=== PATIENT | female | born 1950 | race Caucasian/White ===

== ENCOUNTER 2024-03-28 13:50 | Outpatient (CLI) | payer MEDICARE, OTHER, SELFPAY ==
--- OUTSIDE RECORDS SUMMARY | 2024-03-28 14:06 | XMS_ITS | Clinical Summary ---
Author Organization [facility] [employer] Address [address] [place] [address] Care Team Providers Care Fashion Patternmaker Name Role Phone Sha Watson MD Primary Care Provider Source Comments [facility],non-owned Affiliates and Associated Physician Practices is amultiple site organization consisting of ambulatory clinics and hospital sitesin [place], [place], [place] and [place]. This disclosure is being madepursuant to the Care Everywhere program and may not contain all information available regarding this patient. Last updated 17.[facility] [employer] Allergies Active Allergy Reactions Criticality Noted Date Comments Amoxicillin Rash Medium 02/14/2016 Medications * Be aware that medications may not be up to date on this document. Alwaysverify current medications with the patient. Medication Sig Dispensed Refills Start Date End Date Status alendronate (Fosamax) 70 MG tablet Take 1 (one) tablet by mouth every 7 days before meal Take in morning with full glass of water on empty stomach and remain upright for 30 min 12 tablet 12/10/2023 Active atorvastatin (Lipitor) 40 MG tablet Take 1 (one) tablet by mouth at bedtime 90 tablet 12/10/2023 Active hydroCHLOROthiazide (Hydrodiuril) 50 MG tablet Take 1 (one) tablet by mouth once daily 90 tablet 12/10/2023 Active levothyroxine (Synthroid) 50 MCG tablet Take 1 (one) tablet by mouth daily before breakfast 90 tablet 12/10/2023 Active metoprolol succinate XL 24hr (Toprol XL) 100 MG tablet Take 1 (one) tablet by mouth once daily 90 tablet 12/10/2023 Active potassium chloride ER (Micro-K8) 8 MEQ capsule Take 1 (one) capsule by mouth daily with breakfast 90 capsule 1 12/10/2023 Active pramipexole (Mirapex) 0.5 MG tablet Take 1 (one) tablet by mouth at bedtime 90 tablet 12/10/2023 Active sertraline (Zoloft) 50 MG tablet Take 1 (one) tablet by mouth once daily 90 tablet 12/10/2023 Active Active Problems Problem Noted Date Diagnosed Date Hypokalemia 07/16/2023 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 Osteoarthritis of right knee 06/02/2022 Injury, knee, right, sequela 06/02/2022 Joint injury of right knee 05/23/2022 Humerus head fracture, left, closed, initial enc ounter 04/28/2022 Closed fracture of shaft of left humerus 023 Essential hypertension, benign 12/29/2021 Hypothyroidism, adult 12/29/2021 Mixed hyperlipidemia 12/29/2021 Restless leg syndrome 12/29/2021 Encounters Date Type Department Care Team Description 03/25/2024 12:59 PM SCALE ASSEMBLY SET UP WORKER - 03/25/2024 11:59 PM [facility] [place] [address] Gelacio Payne MD Schutzenhofer, James L, MD Discharge Disposition: Home or Self Care from Last 3 Months Immunizations Name Administration Dates Next Due INFLUENZA VACCINE, QUADR. (F LUZONE; FLULAVAL; FLUARIX; AFLURIA QUADRIVALENT; 6MO+), 0.5 ML (IIV4) 12/30/2021 Family History Medical History Relation Name Comments Cancer - Breast Neg Hx Cancer - Ovarian Neg Hx Social History Tobacco Use Types Packs/Day Years Used Date Smoking Tobacco: Former Smokeless Tobacco: Never Tobacco Cessation:Counseling Given: Not Answered Alcohol Use Standard Drinks/Week Comments No 0 (1 standard drink = 0.6 oz pur e alcohol) AUDIT-C Answer Date Recorded Q1: How often do you have a drink containing alcohol? Never 04/25/2022 Q2: How many drinks containi ng alcohol do you have on a typical day when you are drinking? Patient does not drink 03/14/202 3 Q3: How often do you have si x or more drinks on one occasion? Never 04/25/2022 PHQ-2 Answer Date Recorded Patient Health Questionnaire-2 Score 0 07/16/2023 Sex and Gender Information Value Date Recorded Sex Assigned at Female 03/31/2021 8:40 PM SCALE ASSEMBLY SET UP WORKER Gender Identity Female 03/31/2021 8:40 PM SCALE ASSEMBLY SET UP WORKER Sexual Orientation Straight 03/31/2021 8: 40 PM SCALE ASSEMBLY SET UP WORKER Last Filed Vital Signs Vital Sign Reading Time Taken Comments Blood Pressure 145/75 07/16/2023 8:33 AM CDT Pulse 71 07/16/2023 8:33 AM CDT Temperature 37 C (98.6 F) 07/16/2023 8:33 AM CDT Respiratory Rate 16 04/25/2022 7:28 AM CDT Oxygen Saturation 96% 07/16/2023 8:33 AM CDT Inhaled Oxygen Concentration - - Weight 89.4 kg (197 lb) 07/16/2023 8:33 AM CDT Height 165.1 cm (5' 5 ) 07/16/2023 8:33 AM CDT Body Mass Index 32.78 07/16/2023 8:33 AM CDT Plan of Treatment Health Maintenance Due Date Last Done Comments COLOGUARD (AGES 45-75) - COLON CA SCREENING 1952 COLON MONITORING 1952 COLONOSCOPY - COLON CA SCREENING 1952 CT COLONOGRAPHY - COLON CA SCREENING 1952 FIT - COLON CA SCREENING 1952 FLEX SIG - COLON CA SCREENING 1952 DTAP/TDAP/TD VACCINES (1 - Tdap) 07/20/1971 ZOSTER VACCINE (1 of 2) 2002 MEDICARE AWV 12 MONTHS 08/02/2023 08/01/2022, 08/01/2022, 01/20/2021 COVID-19 VACCINE (3 - season) 2023 06/09/2020, 05/12/2020 INFLUENZA VACCINE (#1) 2023 12/30/2021 DEPRESSION SCREENING 02/13/2024 07/16/2023, 04/29/19 Colorectal Cancer Screening 12/22/2025 Postponed from 1952 (Patient Directed) MAMMOGRAM 03/25/2026 03/25/2024, 01/12, 12/07/2021, Additional history exists SCREENING FOR DIABETES 07/01/2026 , 01/12/2023, 07/31/2022, Additional history exists Respiratory Syncytial Virus (RSV) Vaccine Pt: or over 60 yrs (1 - 1-dose 75+ series) 07/20/2027 BONE DENSITY TESTING Completed 08/30/2022 HEPATITIS B VACCINE Aged Out No longe r eligible based on patient's age to complete this topic HEPATITIS C SCREENING Discontinued HIB VACCINE Aged Out No longer eligi ble based on patient's age to complete this topic HPV VACCINE Aged Out No longer eligi ble based on patient's age to complete this topic MENINGOCOCCAL (Group B) VACCINE Aged Out No longer eligible based on patient's age to complete this topic MENINGOCOCCAL VACCINE Aged Out No amaya lopez eligible based on patient's age to complete this topic PNEUMOCOCCAL VACCINE 50+ Discontinued Procedures Procedure Name Priority Date/Time Associated Diagnosis Comments MAMMO BILAT SCREENING W KAYE Routine 03/25/2024 1:14 PM SCALE ASSEMBLY SET UP WORKER Visit for screening mammogram COMPREHENSIVE METABOLIC PANEL Routine 07/02/2023 8:38 AM CDT Hypothyroidism, adult DEXA BONE DENSITY AXIAL SKELETON Routine 08/30/2022 2:59 PM CDT Wellness examination Hypothyroidism, adult Essential hypertension, benign Age related osteoporosis, unspecified pathological fracture presence from Last 3 Months or Most Recently Relevant to Health Maintenance Results * Mammo Bilat Screening W Kaye (03/25/2024 1:14 PM SCALE ASSEMBLY SET UP WORKER) Anatomical Region Laterality Modality Breast Bilateral Mammography 03/25/2024 2:12 PM SCALE ASSEMBLY SET UP WORKER Narrative 03/25/2024 2:14 PM SCALE ASSEMBLY SET UP WORKER FULL FIELD DIGITAL BILATERAL SCREENING MAMMOGRAMS WITH CAD AND 3-D TOMOSYNTHESIS DATE: 03/25/2024 1:15 PM PREVIOUS EXAM DATE/S (EVALUATED FOR COMPARISON): 01/25/2023 INDICATION: Screening TECHNIQUE: Bilateral craniocaudad (CC) and mediolateral oblique (MLO) views. Images were interpreted with the aid of CAD. 3-D tomosynthesis images were performed. TISSUE DENSITY: There are scattered areas of fibroglandular density FINDINGS: No discrete abnormality. No significant interval change. ASSESSMENT: BI-RADS 1 - Negative RECOMMENDATIONS: Continued annual screening mammography The above findings should be correlated with physical examination. A relatively nonspecific study should not preclude additional evaluation if suspicious findings are present clinically. > Interpreting Provider: Waldo Bolden JR, MD on 03/25/2024 2:14 PM Sha Watson MD MAMMO ORDERABLE S * (ABNORMAL) COMPREHENSIVE METABOLIC PANEL (07/02/2023 8:38 AM T) Pathologist [facility] Glucose 110 70 - 125 mg/dL 07/02/2023 11:12 AM [facility] Sodium 141 136 - 145 mmol/L 07/02/2023 11:12 AM [facility] Potassium 3.3(L) 3.4 - 5.1 mmol/L 07/02/2023 11:12 AM [facility] Chloride 106 98 - 107 mmol/L 07/02/2023 11:12 AM [facility] CO2 26 22 - 29 mmol/L 07/02/2023 11:12 AM [facility] Calcium 9.51 8.4 - 10.2 mg/dL 07/02/2023 11:12 AM [facility] Anion Gap 9 6 - 16 mmol/L 07/02/2023 11:12 AM [facility] BUN 20.5(H) 9.8 - 20.1 mg/dL 07/02/2023 11:12 AM [facility] Creatinine 0.95 0.57 - 1.11 mg/dL 07/02/2023 11:12 AM [facility] Alkaline Phosphatase 86 40 - 150 U/L 07/02/2023 11:12 AM [facility] ALT 19 <=55 U/L 07/02/2023 11:12 AM [facility] AST 25 5 - 34 U/L 07/02/2023 11:12 AM [facility] Protein Total 7.2 6.4 - 8.3 gm/dL 07/02/2023 11:12 AM [facility] Albumin 4.1 3.4 - 4.8 gm/dL 07/02/2023 11:12 AM [facility] Globulin Total 3.1 2.6 - 4.0 gm/dL 07/02/2023 11:[address] [facility] Albumin/Globulin Ratio 1.3 0.9 - 1.6 07/02/2023 11:[address] [facility] Bilirubin Total 0.6 0.2 - 1.2 mg/dL 07/02/2023 11:[address] [facility] eGFR 64(L) >90 mL/min/1.7 3m2 07/02/2023 11:[address] [facility] Comment:The GFR result was c alculated using the updated CKD-EPI Creatinine Equation (2020). Blood BLOOD SPECIMEN / Unknown Venipuncture / Unknown 07/02/2023 8:38 AM CDT 07/02/2023 8:38 AM CDT Gelacio Payne MD LAB - CHEMISTRY KALLIE PE[facility] Organization Address City/State/[facility] Co de Phone Number [facility] [address] * DEXA BONE DENSITY STUDY [id number] (08/30/2022 2:59 PM CDT) Anatomical Region Laterality Modality Digital Radiogra phy 08/30/2022 3:08 PM CDT Impressions 08/30/2022 3:25 PM CDT IMPRESSION: Osteoporosis of the right femoral neck which increases risk of fracture. Continued bone densitometry surveillance is recommended. Please see the PACS images for additional details. World Health Organization definitions of standard deviations relative to the mean T-score: Normal bone density = -1.0 and above Osteopenia = between -1.0 and -2.5 Osteoporosis = -2.5 and below Edited by Bre Tirado on 08/30/2022 3:11 PM > Interpreting Provider: Drake Brooks MD on 08/30/2022 3:25 PM Narrative 08/30/2022 3:25 PM CDT PROCEDURE: DEXA BONE DENSITY AXIAL SKELETON DATE/TIME OF EXAM: 08/30/2022 2:59 PM INDICATION: Z00.00: Encounter for general adult medical examination without abnormal findings. E03.9: Hypothyroidism, unspecified. I10: Essential (primary) hypertension. M81.0: Age-related osteoporosis without current pathological fracture. Additional History: COMPARISON: None. REPORT: Bone mineral density for the L1-4 region of the lumbar spine L1-L4, 1.21 with T-score of 0.1. Bone mineral density for the left and right femoral necks, 0.70 and 0.69 with T-scores of -2.4 and -2.5 respectively. -2.5 is borderline for mild osteoporosis. BONE DENSITY ASSESSMENT: WHO Category: Osteoporosis. Procedure Note Drake Brooks MD - 08/30/2022 PROCEDURE: DEXA BONE DENSITY AXIAL SKELETON DATE/TIME OF EXAM: 08/30/2022 2:59 PM INDICATION: Z00.00: Encounter for general adult medical examinationwithout abnormal findings. E03.9: Hypothyroidism, unspecified. I10: Essential (primary) hypertension. M81.0: Age-related osteoporosis without current pathological fracture. Additional History: COMPARISON: None. REPORT: Bone mineral density for the L1-4 region of the lumbar spine L1-L4, 1.21 with T-score of 0.1. Bone mineral density for the left and right femoral necks, 0.70 and 0.69 with T-scores of -2.4 and -2.5 respectively. -2.5 is borderline for mild osteoporosis. BONE DENSITY ASSESSMENT: WHO Category: Osteoporosis. IMPRESSION: Osteoporosis of the right femoral neck which increases risk of fracture. Continued bone densitometry surveillance is recommended. Please see the PACS images for additional details. World Health Organization definitions of standard deviations relative to the mean T-score: Normal bone density = -1.0 and above Osteopenia = between -1.0 and -2.5 Osteoporosis = -2.5 and below Edited by Bre Tirado on 08/30/2022 3:11 PM > Interpreting Provider: Drake Brooks MD on 08/30/2022 3:25 PM Gelacio Payne MD DEXA ORDERABLES from Last 3 Months or Most Recently Relevant to Health Maintenance Care Teams Fashion Patternmaker Relationship Specialty Start Date End Date Sha Watson MD [address] [address] PCP - General Internal Medicine 03/25/24
--- OUTSIDE RECORDS SUMMARY | 2024-03-28 14:06 | XMS_ITS | Referral Summary ---
Author Organization [facility] Address [address] [place] [address] Care Team Providers Care Padder Cushion Name Role Phone Sha Watson MD Primary Care Provider Source Comments [facility],non-christian hospital Affiliates and Associated Physician Practices is amultiple site organization consisting of ambulatory clinics and hospital sitesin [place], [place], [place] and [place]. This disclosure is being madepursuant to the Care Everywhere program and may not contain all information available regarding this patient. Last updated 17.[facility] Encounters Date Type Department Care Team Description 03/25/2024 12:59 PM DANCE STUDIO MANAGER - 03/25/2024 11:59 PM [facility] Hospital Encounter [facility] [address] [place] [address] Gelacio Payne MD Schutzenhofer, James L, MD Discharge Disposition: Home or Self Care from Last 3 Months Allergies Active Allergy Reactions Criticality Noted Date [...] Mixed hyperlipidemia 12/29/2021 Restless leg syndrome 12/29/2021 Immunizations Name Administration Dates Next Due INFLUENZA VACCINE, QUADR. (F LUZONE; FLULAVAL; FLUARIX; AFLURIA QUADRIVALENT; 6MO+), 0.5 ML (IIV4) 12/30/2021 Social History Tobacco Use Types Packs/Day Years [...] you are drinking? Patient does not drink Q3: How often do you have si x or more drinks on one occasion? Never 04/25/2022 PHQ-2 Answer Date Recorded Patient Health Questionnaire-2 Score 0 07/16/2023 Sex and Gender Information Value Date Recorded Sex Assigned at Female 03/31/2021 8:40 PM DANCE STUDIO MANAGER Gender Identity Female 03/31/2021 8:40 PM DANCE STUDIO MANAGER Sexual Orientation Straight 03/31/2021 8: 40 PM DANCE STUDIO MANAGER Last Filed Vital Signs Vital Sign Reading [...] 07/16/2023 8:33 AM CDT Plan of Treatment Not on file Procedures Procedure Name Priority Date/Time Associated Diagnosis Comments MAMMO BILAT SCREENING W KAYE Routine 03/25/2024 1:14 PM DANCE STUDIO MANAGER Visit for screening mammogram COMPREHENSIVE METABOLIC PANEL Routine 07/02/2023 8:38 AM CDT Hypothyroidism, adult DEXA BONE DENSITY AXIAL SKELETON Routine 08/30/2022 2:59 PM CDT Wellness examination Hypothyroidism, adult Essential hypertension, benign Age related osteoporosis, unspecified pathological fracture presence from Last 3 Months or Most Recently Relevant to Health Maintenance Results * Mammo Bilat Screening W Kaye (03/25/2024 1:14 PM DANCE STUDIO MANAGER) Anatomical Region Laterality Modality Breast Bilateral Mammography 03/25/2024 2:12 PM DANCE STUDIO MANAGER Narrative 03/25/2024 2:14 PM DANCE STUDIO MANAGER FULL FIELD DIGITAL BILATERAL SCREENING MAMMOGRAMS WITH [...] (ABNORMAL) COMPREHENSIVE METABOLIC PANEL (07/02/2023 8:38 AM [facility] Glucose 110 70 - 125 mg/dL 07/02/2023 11:[address] [facility] Sodium 141 136 - 145 mmol/L 07/02/2023 11:[address] [facility] Potassium 3.3(L) 3.4 - 5.1 mmol/L 07/02/2023 11:[address] [facility] Chloride 106 98 - 107 mmol/L 07/02/2023 11:[address] [facility] CO2 26 22 - 29 mmol/L 07/02/2023 11:[address] [facility] Calcium 9.51 8.4 - 10.2 mg/dL 07/02/2023 11:[address] [facility] Anion Gap 9 6 - 16 mmol/L 07/02/2023 11:[address] [facility] BUN 20.5(H) 9.8 - 20.1 mg/dL 07/02/2023 11:[address] [facility] Creatinine 0.95 0.57 - 1.11 mg/dL 07/02/2023 11:[address] [facility] Alkaline Phosphatase 86 40 - 150 U/L 07/02/2023 11:[address] [facility] ALT 19 <=55 U/L 07/02/2023 11:[address] [facility] AST 25 5 - 34 U/L 07/02/2023 11:[address] [facility] Protein Total 7.2 6.4 - 8.3 gm/dL 07/02/2023 11:[address] [facility] Albumin 4.1 3.4 - 4.8 gm/dL 07/02/2023 11:12 AM CDT [facility] Globulin Total 3.1 2.6 - 4.0 gm/dL 07/02/2023 11:12 AM CDT [facility] Albumin/Globulin Ratio 1.3 0.9 - 1.6 07/02/2023 11:12 AM CDT [facility] Bilirubin Total 0.6 0.2 - 1.2 mg/dL 07/02/2023 11:12 AM CDT [facility] eGFR 64(L) >90 mL/min/1.7 3m2 07/02/2023 11:12 AM CDT [facility] Comment:The GFR result was c alculated using the updated CKD-EPI Creatinine Equation (2020). Blood BLOOD SPECIMEN / Unknown Venipuncture / Unknown 07/02/2023 8:38 AM CDT 07/02/2023 8:38 AM CDT Gelacio Payne MD LAB - CHEMISTRY [facility] Organization Address City/State/[facility] Co de Phone Number [facility] [address] * DEXA BONE DENSITY STUDY [id number] (08/30/2022 2:59 PM CDT) Anatomical Region Laterality [...] Recently Relevant to Health Maintenance Care Teams Padder Cushion Relationship Specialty Start Date End Date Sha Watson MD [address] [address] PCP - General Internal Medicine 03/25/24
--- OUTSIDE RECORDS SUMMARY | 2024-03-28 14:06 | XMS_ITS | Patient Health Summary ---
Author Organization [facility] Address [address] [place] [address] Care Team Providers Care Supervisor Drying Name Role Phone Sha Watson MD Primary Care Provider Note from [facility],non-owned Affiliates and Associated Physician Practices is amultiple site organization consisting of ambulatory clinics and hospital sitesin [place], [place]. This disclosure is being madepursuant to the Care Everywhere program and may not contain all information available regarding this patient. Last updated 17.[facility] Allergies * Amoxicillin(Rash) -Medium Criticality Medications * Be aware that medications may not be up to date on this document. Alwaysverify current medications with the patient. * alendronate (Fosamax) 70 MG tablet(Started 12/10/2023) Take 1 (one) tablet by mouth every 7 days before meal Take in morning with full glass of water on empty stomach and remain upright for 30 min * atorvastatin (Lipitor) 40 MG tablet(Started 12/10/2023) Take 1 (one) tablet by mouth at bedtime * hydroCHLOROthiazide (Hydrodiuril) 50 MG tablet(Started 12/10/2023) Take 1 (one) tablet by mouth once daily * levothyroxine (Synthroid) 50 MCG tablet(Started 12/10/2023) Take 1 (one) tablet by mouth daily before breakfast * metoprolol succinate XL 24hr (Toprol XL) 100 MG tablet(Started 12/10/2023) Take 1 (one) tablet by mouth once daily * potassium chloride ER (Micro-K8) 8 MEQ capsule(Started 12/10/2023) Take 1 (one) capsule by mouth daily with breakfast 1 refill by 12/09/2024 * pramipexole (Mirapex) 0.5 MG tablet(Started 12/10/2023) Take 1 (one) tablet by mouth at bedtime * sertraline (Zoloft) 50 MG tablet(Started 12/10/2023) Take 1 (one) tablet by mouth once daily Active Problems Problem Noted Date Diagnosed Date Hypokalemia 07/16/2023 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 (FLUZONE; FLULAVAL; FLUARIX; AFLURIA QUADRIVALENT; 6MO+), 0.5 ML (IIV4)(Given 12/30/2021) Social History Tobacco Use Types Packs/Day Years [...] Sex Assigned at Female 03/31/2021 8:40 PM MD DO [facility] Gender Identity Female 03/31/2021 8:40 PM MD DO [facility] Sexual Orientation Straight 03/31/2021 8: 40 PM MD DO [facility] Last Filed Vital Signs Vital Sign Reading [...] Mass Index 32.78 07/16/2023 8:33 AM CDT Procedures * MAMMO BILAT SCREENING W PB(Performed 03/25/2024) Performed for Visit for screening mammogram * CARDIAC EKG ORDER(Performed 2023) * EKG 12-LEAD(Performed 07/17/2023) Performed for Mixed hyperlipidemia, Essential hypertension, benign * TSH(Performed 07/02/2023) Performed for Hypothyroidism, adult * LIPID PROFILE(Performed 07/02/2023) Performed for Hypothyroidism, adult * COMPREHENSIVE METABOLIC PANEL(Performed 07/02/2023) Performed for Hypothyroidism, adult * CBC W AUTO DIFFERENTIAL(Performed 07/02/2023) Performed for Hypothyroidism, adult * MAMMO BILAT SCREENING W PB(Performed 01/25/2023) Performed for Encounter for screening mammogram for malignant neoplasm of breast * TSH(Performed 01/12/2023) Performed for Hypothyroidism, adult, Essential hypertension, benign * LIPID PROFILE(Performed 01/12/2023) Performed for Hypothyroidism, adult, Essential hypertension, benign * COMPREHENSIVE METABOLIC PANEL(Performed 01/12/2023) Performed for Hypothyroidism, adult, Essential hypertension, benign * CBC W AUTO DIFFERENTIAL(Performed 01/12/2023) Performed for Hypothyroidism, adult, Essential hypertension, benign * XR HUMERUS LEFT 2VW OR MORE(Performed 10/25/2022) Performed for Closed fracture of shaft of left humerus with routine healing, unspecified fracture morphology, subsequent encounter * XR HUMERUS LEFT 2VW OR MORE(Performed 09/20/2022) Performed for Closed fracture of shaft of left humerus with routine healing, unspecified fracture morphology, subsequent encounter * DEXA BONE DENSITY AXIAL SKELETON(Performed 08/30/2022) Performed for Wellness examination, Hypothyroidism, adult, Essential hypertension, benign, Age related osteoporosis, unspecified pathological fracture presence * XR HUMERUS LEFT 2VW OR MORE(Performed 08/09/2022) Performed for Humerus head fracture, left, closed, initial encounter * TSH(Performed 07/31/2022) Performed for Hypothyroidism, adult, Mixed hyperlipidemia, Essential hypertension, benign * LIPID PROFILE(Performed 07/31/2022) Performed for Hypothyroidism, adult, Mixed hyperlipidemia, Essential hypertension, benign * COMPREHENSIVE METABOLIC PANEL(Performed 07/31/2022) Performed for Hypothyroidism, adult, Mixed hyperlipidemia, Essential hypertension, benign * CBC W AUTO DIFFERENTIAL(Performed 07/31/2022) Performed for Hypothyroidism, adult, Mixed hyperlipidemia, Essential hypertension, benign * XR HUMERUS LEFT 2VW OR MORE(Performed 07/05/2022) Performed for Closed fracture of shaft of left humerus with routine healing, unspecified fracture morphology, subsequent encounter * XR HUMERUS LEFT 2VW OR MORE(Performed 06/14/2022) Performed for Humerus head fracture, left, closed, initial encounter * MRI KNEE RIGHT WWO CONTRAST(Performed 05/31/2022) Performed for Joint injury of right knee, initial encounter * XR HUMERUS LEFT 2VW OR MORE(Performed 05/24/2022) Performed for Closed fracture of shaft of left humerus, unspecified fracture morphology, initial encounter * XR HUMERUS LEFT 2VW OR MORE(Performed 05/10/2022) Performed for Closed fracture of shaft of left humerus, unspecified fracture morphology, initial encounter * XR HUMERUS LEFT 2VW OR MORE(Performed 04/25/2022) Performed for Fall, initial encounter * TSH(Performed 01/24/2022) Performed for Mixed hyperlipidemia * LIPID PROFILE(Performed 01/24/2022) Performed for Mixed hyperlipidemia * COMPREHENSIVE METABOLIC PANEL(Performed 01/24/2022) Performed for Mixed hyperlipidemia * CBC W AUTO DIFFERENTIAL(Performed 01/24/2022) Performed for Mixed hyperlipidemia * MAMMO BILAT SCREENING(Performed 12/07/2021) Performed for Visit for screening mammogram * MAMMO BILAT SCREENING(Performed 09/29/2020) Performed for Visit for screening mammogram * SARS-COV-2 (COVID-19) IN HOUSE(Performed 10/04/2019) Performed for Exposure to SARS-associated coronavirus * MAMMO BILAT SCREENING(Performed 12/31/2018) Performed for Breast cancer screening * MAMMO BILAT SCREENING(Performed 11/20/2017) Performed for Visit for screening mammogram * MAMMO BILAT SCREENING(Performed 11/01/2016) Performed for Visit for screening mammogram * MAMMO BILAT SCREENING(Performed 08/04/2015) Performed for Visit for screening mammogram * US ABDOMEN COMPLETE(Performed 12/21/2014) Performed for Epigastric pain * MAMMO BILAT SCREENING(Performed 07/16/2014) Performed for Other screening mammogram * MAMMO BILAT SCREENING(Performed 07/04/2013) Performed for Other screening mammogram * VAS RIGHT VENOUS DUPLEX LE(Performed 11/28/2012) Performed for Pain * GROSS + MICRO EXAM(Performed 01/27/2007) Results * Mammo Bilat Screening W Pb (03/25/2024 1:14 PM MD DO [facility]) Only the most recent of2 resultswithin the time period is included. Anatomical Region Laterality Modality Breast Bilateral Mammography 03/25/2024 2:12 PM MD DO [facility] Narrative 03/25/2024 2:14 PM MD DO [facility] FULL FIELD DIGITAL BILATERAL SCREENING MAMMOGRAMS WITH [...] Sha Watson MD MAMMO ORDERABLE S * CARDIAC EKG ORDER (2023 2:54 PM CDT) Narrative 2023 2:54 PM CDT Ordered by an unspecified provider. Scanned Document CARDIAC SERVICES ORD ERABLES * EKG 12-LEAD (07/17/2023 12:42 PM CDT) [facility] Ventricular Rate 68 BPM [facility] Atrial Rate 68 BPM [facility] P-R Interval 154 ms [facility] QRS Duration ms 76 ms [facility] Q-T Interval ms 414 ms [facility] QTC Calculation (Bezet) 440 ms [facility] Calculated P Drummond 48 degrees [facility] Calculated R Drummond -9 degrees [facility] Calculated T Drummond 5 degrees [facility] Interpretation EKG NORMAL SINUS RHYTHM NORMAL ECG WHEN COMPARED WITH ECG OF 22-NOV-1999 08:55, NO SIGNIFICANT CHANGE WAS FOUND Confirmed by ROBBY MAGAÑA MD ([id number]), film and video editor MAURI PÉREZ ([id number]) on 07/18/2023 2:46:43 PM [facility] 07/17/2023 12:4 2 PM CDT 07/18/2023 2:46 PM CDT Gelacio Payne MD ECG ORDERABLES [facility] * CBC WITH DIFFERENTIAL (07/02/2023 8:38 AM CDT) Only the most recent of4 resultswithin the time period is included. Pathologist [facility] WBC 9.4 4.0 - 10.7 x10E9/L 07/02/2023 11:00 AM CDT [facility] RBC Count 4.46 3.90 - 5.20 x10E12/L 07/02/2023 11:00 AM CDT [facility] Hemoglobin 13.6 11.9 - 15.8 g/dL 07/02/2023 11:00 AM CDT [facility] Hematocrit 42.3 34.8 - 46.1 % 07/02/2023 11:00 AM CDT [facility] MCV 94.8 80.0 - 98.0 fL 07/02/2023 11:00 AM CDT [facility] MCH 30.5 26.7 - 33.6 pg 07/02/2023 11:00 AM CDT [facility] MCHC 32.2 31.7 - 36.3 g/dL 07/02/2023 11:00 AM CDT [facility] RDW-CV 13.1 11.3 - 14.8 % 07/02/2023 11:00 AM CDT [facility] Platelet Count 295 150 - 420 x10E9/L 07/02/2023 11:00 AM CDT [facility] MPV 10.9 7.8 - 11.4 fL 07/02/2023 11:00 AM CDT [facility] Neutrophil % 55.4 41.0 - 74.0 % 07/02/2023 11:00 AM CDT [facility] Lymphocyte % 34.0 17.0 - 47.0 % 07/02/2023 11:00 AM T [facility] Monocyte % 7.7 3.0 - 11.0 % 07/02/2023 11:00 AM T [facility] Eosinophil % 2.0 0.0 - 7.0 % 07/02/2023 11:00 AM T [facility] Basophil % 0.7 0.0 - 1.6 % 07/02/2023 11:00 AM T [facility] Immature Granulocytes % 0.2 0.0 - 1.0 % 07/02/2023 11:00 AM T [facility] Neutrophil Absolute 5.21 1.60 - 7.50 x10E9/L 07/02/2023 11:00 AM T [facility] Lymphocyte Absolute 3.21 1.00 - 4.40 x10E9/L 07/02/2023 11:00 AM T [facility] Monocyte Absolute 0.73 0.15 - 1.00 x10E9/L 07/02/2023 11:00 AM T [facility] Eosinophil Absolute 0.19 0.00 - 0.60 x10E9/L 07/02/2023 11:00 AM T [facility] Basophil Absolute 0.07 0.00 - 0.13 x10E9/L 07/02/2023 11:00 AM T [facility] Blood BLOOD SPECIMEN / Unknown Venipuncture / Unknown 07/02/2023 8:38 AM CDT 07/02/2023 8:38 AM CDT Gelacio Payne MD LAB - HEMATOLOGY ORD ERABLES [facility] [address] * (ABNORMAL) COMPREHENSIVE METABOLIC PANEL (07/02/2023 8:38 AM CDT) Only the most recent of4 resultswithin the time period is included. [facility] Signature Glucose 110 70 - 125 mg/dL 07/02/2023 11:12 AM [facility] Sodium 141 136 - 145 mmol/L 07/02/2023 11:12 AM [facility] Potassium 3.3(L) 3.4 - 5.1 mmol/L 07/02/2023 11:12 AM [facility] Chloride 106 98 - 107 mmol/L 07/02/2023 11:12 AM [facility] CO2 26 22 - 29 mmol/L 07/02/2023 11:12 AM [facility] Calcium 9.51 8.4 - 10.2 mg/dL 07/02/2023 11:12 AM [facility] Anion Gap 9 6 - 16 mmol/L 07/02/2023 11:12 AM [facility] BUN 20.5(H) 9.8 - 20.1 mg/dL 07/02/2023 11:12 AM [facility] Creatinine 0.95 0.57 - 1.11 mg/dL 07/02/2023 11:12 AM [facility] Alkaline Phosphatase 86 40 - 150 U/L 07/02/2023 11:12 AM [facility] ALT 19 <=55 U/L 07/02/2023 11:12 AM [facility] AST 25 5 - 34 U/L 07/02/2023 11:12 AM [facility] Protein Total 7.2 6.4 - 8.3 gm/dL 07/02/2023 11:12 AM [facility] Albumin 4.1 3.4 - 4.8 gm/dL 07/02/2023 11:12 AM [facility] Globulin Total 3.1 2.6 - 4.0 gm/dL 07/02/2023 11:12 AM [facility] Albumin/Globulin Ratio 1.3 0.9 - 1.6 07/02/2023 11:12 AM [facility] Bilirubin Total 0.6 0.2 - 1.2 mg/dL 07/02/2023 11:12 AM [facility] eGFR 64(L) >90 mL/min/1.7 3m2 07/02/2023 11:12 AM [facility] Comment:The GFR result was c alculated using the updated CKD-EPI Creatinine Equation (2020). Blood BLOOD SPECIMEN / Unknown Venipuncture / Unknown 07/02/2023 8:38 AM CDT 07/02/2023 8:38 AM CDT Gelacio Payne MD LAB - CHEMISTRY KALLIE PEÑA Performing Organization Address [facility] Co de Phone Number [facility] [address] * TSH (07/02/2023 8:38 AM CDT) Only the most recent of4 resultswithin the time period is included. TSH 2.5096 0.35 - 4.94 uIU/mL 07/02/2023 11:32 AM CDT [facility] Blood BLOOD SPECIMEN / Unknown Venipuncture / Unknown 07/02/2023 8:38 AM CDT 07/02/2023 8:38 AM CDT Gelacio Payne MD LAB - CHEMISTRY KALLIE PEÑA Performing Organization Address [facility] de Phone Number [facility] [address] [place] [address] * (ABNORMAL) LIPID PROFILE (07/02/2023 8:38 AM CDT) Only the most recent of4 resultswithin the time period is included. Cholesterol 171 <200 mg/dL 07/02/2023 11:12 AM CDT [facility] Triglycerides 248(H) <150 mg/dL 07/02/2023 11:12 AM CDT [facility] HDL Cholesterol 34(L) >40 mg/dL 11:12 AM CDT [facility] Chol HDL Ratio 5.0 1.0 - 6.0 07/02/2023 11:12 AM CDT [facility] LDL Calculated 87 65 - 130 mg/dL 07/02/2023 11:12 AM CDT [facility] VLDL Calculated 50(H) <=30 mg/dL 11:12 AM CDT [facility] Blood BLOOD SPECIMEN / Unknown Venipuncture / Unknown 07/02/2023 8:38 AM CDT 07/02/2023 8:38 AM CDT Narrative [facility] - 07/02/2023 11:12 AM CDT Lipid Profile Comment: CHOLESTEROL LEVEL..................CLINICAL INTERPRETATION LESS THAN 200 MG/DL..............................DESIRABLE 200-239 MG/DL..............................BORDERLINE HIGH GREATER THAN 240 MG/DL................................HIGH LDL-CHOLESTEROL LEVEL..............CLINICAL INTERPRETATION LESS THAN 100 MG/DL................................OPTIMAL 100-129 MG/DL.................................NEAR OPTIMAL GREATER THAN 160 MG/DL...........................HIGH RISK HDL RISK LEVEL GREATER THEN 60 MG/DL............................DECREASED 40-60 MG/DL........................................AVERAGE LESS THAN 40 MG/DL...............................INCREASED TRIGLYCERIDE LEVEL..................CLINICAL INTERPRETATION LESS THAN 150 MG/DL...............................DESIRABLE 150-199 MG/DL...............................BORDERLINE HIGH 200-499 MG/DL..........................................HIGH GREATER THAN 500..................................VERY HIGH THE NATIONAL CHOLESTEROL EDUCATION PROGRAM HAS SET THE ABOVE GUIDELINES (REFERANCE VALUES) FOR CHOLESTEROL AND HDL. RISK ASSOCIATED WITH CHOLESTEROL/HDL RATIOS RISK....................MALE RATIO.............FEMALE RATIO 1/2 AVERAGE.................<3.4.......................<3.3 LOW RISK.................... 4.0 ...................... 3.8 AVERAGE..................... 5.0 ...................... 4.5 2X AVERAGE.................. 9.5 ...................... 7.0 3X AVERAGE...................>23........................>11 Gelacio Payne MD LAB - CHEMISTRY KALLIE PEÑA [facility] Organization Address City/State/ZIP Co de Phone Number [facility] [address] [place] [address], [facility] * XR HUMERUS LEFT 2VW OR MORE (10/25/2022 10:24 AM CDT) Only the most recent of8 resultswithin the time period is included. Anatomical Region Laterality Modality Upper Extremity Radiographic Monica ging 10/25/2022 10:4 6 AM CDT Impressions 10/25/2022 10:47 AM CDT IMPRESSION: Unchanged alignment. > Interpreting Provider: Tio Lao MD on 10/25/2022 10:47 AM Narrative 10/25/2022 10:47 AM CDT PROCEDURE: XR HUMERUS LEFT 2VW OR MORE DATE/TIME OF EXAM: 10/25/2022 10:24 AM CLINICAL INFORMATION: None relevant/not provided if blank. Indication: S42.302D: Closed fracture of shaft of left humerus with routine healing, unspecified fracture morphology, subsequent encounter Additional History: COMPARISON: 09/20/2022 TECHNIQUE: FINDINGS: A brace is present. A moderately displaced and angulated fracture of the mid humeral shaft is unchanged in alignment and healing with progressive callus. Procedure Note Tio Lao MD - 10/25/2022 PROCEDURE: XR HUMERUS LEFT 2VW OR MORE DATE/TIME OF EXAM: 10/25/2022 10:24 AM CLINICAL INFORMATION: None relevant/not provided if blank. Indication: S42.302D: Closed fracture of shaft of left humerus withroutine healing, unspecified fracture morphology, subsequent encounter Additional History: COMPARISON: 09/20/2022 TECHNIQUE: FINDINGS: A brace is present. A moderately displaced and angulated fracture of the mid humeral shaft is unchanged in alignment and healing with progressive callus. IMPRESSION: Unchanged alignment. > Interpreting Provider: Tio Lao MD on 10/25/2022 10:47 AM Justyn Granados MD DIAGNOSTIC IMAGING O RDERABLES * DEXA BONE DENSITY STUDY [id number] (08/30/2022 2:59 PM CDT) Anatomical Region Laterality [...] 3:25 PM Gelacio Payne MD DEXA ORDERABLES * MRI KNEE W WO CONTRAST RIGHT [id number] (05/31/2022 3:13 PM CDT) Anatomical Region Laterality Modality Lower Extremity Magnetic Resonan ce 05/31/2022 10:4 1 PM CDT Impressions 06/01/2022 9:32 AM CDT IMPRESSION: 1.Mild to moderate tricompartmental osteoarthritic appearing degenerative changes with what appears to be simple, possibly chronic medial meniscal tear in the posterior horn. 2.Subcutaneous edematous changes in the extra-articular soft tissues possibly associated with vascular or venous congestion. Correlate clinically to exclude active infection or inflammation. 3.Small amount of fluid in the prepatellar bursa consistent with bursitis. Edited by Bre Tirado on 06/01/2022 9:18 AM > Interpreting Provider: Drake Brooks MD on 06/01/2022 9:32 AM Narrative 06/01/2022 9:32 AM CDT PROCEDURE: MRI KNEE RIGHT WWO CONTRAST, DATE/TIME OF EXAM: 05/31/2022 3:14 PM, LOCATION [facility] INDICATION: S89.91XA: Unspecified injury of right lower leg, initial encounter. COMPARISON: No comparison. CONTRAST: 6 cc Gadavist. FINDINGS: No fracture, subluxation, or dislocation. No aggressive bone lesions. Mild to moderate tricompartmental osteoarthritic appearing degenerative changes present with scattered areas of cartilaginous erosive changes, joint space narrowing, and mild spur formation. Trace effusion present. Extensive intrameniscal signal abnormality present in the posterior horn of the medial meniscus with probable chronic tear extending to the inferior surface. The anterior horn is diminutive but appears intact. The lateral meniscus, as well as both cruciate ligaments appear intact. Collateral ligaments appear intact. Quadriceps and infrapatellar tendons intact. Mild diffuse subcutaneous infiltrative changes present as well as a small amount of fluid in the prepatellar bursa. Procedure Note Drake Brooks MD - 06/01/2022 PROCEDURE: MRI KNEE RIGHT WWO CONTRAST, DATE/TIME OF EXAM: :14 PM, LOCATION [facility] INDICATION: S89.91XA: Unspecified injury of right lower leg, initial encounter. COMPARISON: No comparison. CONTRAST: 6 cc Gadavist. FINDINGS: No fracture, subluxation, or dislocation. No aggressive bone lesions. Mild to moderate tricompartmental osteoarthritic appearing degenerative changes present with scattered areas of cartilaginous erosive changes, joint space narrowing, and mild spur formation. Trace effusion present. Extensive intrameniscal signal abnormality present in the posterior hornof the medial meniscus with probable chronic tear extending to the inferior surface. The anterior horn is diminutive but appears intact. The lateral meniscus, as well as both cruciate ligaments appear intact. Collateral ligaments appear intact. Quadriceps and infrapatellar tendons intact. Mild diffuse subcutaneous infiltrative changes present as well as a small amount of fluid in the prepatellar bursa. IMPRESSION: 1.Mild to moderate tricompartmental osteoarthritic appearingdegenerative changes with what appears to be simple, possibly chronic medial meniscal tear in the posterior horn. 2.Subcutaneous edematous changes in the extra-articular soft tissues possibly associated with vascular or venous congestion. Correlate clinically to exclude active infection or inflammation. 3.Small amount of fluid in the prepatellar bursa consistent withbursitis. Edited by Bre Tirado on 06/01/2022 9:18 AM > Interpreting Provider: Drake Brooks MD on 06/01/2022 9:32 AM Gelacio Payne MD MR ORDERABLES * MAMMO BILAT SCREENING (12/07/2021 3:46 PM CDT) Only the most recent of8 resultswithin the time period is included. Anatomical Region Laterality Modality Breast Bilateral Mammography 12/07/2021 4:33 PM CDT Impressions 12/07/2021 4:34 PM CDT : Benign mammogram, without evidence of malignancy. RECOMMENDATION: Annual screening mammography. OVERALL ASSESSMENT: BI-RADS CATEGORY 2: BENIGN. Annual screening mammography. A). A negative report should not delay a biopsy if a dominant or clinically suspicious mass is present. B). Adenosis and dense breasts may obscure an underlying neoplasm. C). Study interpreted with computer-aided detection. MQSA BI-RADS Categories: Category 0 - needs additional imaging evaluation. Category 1 - negative. Category 2 - benign. Category 3 - probably benign. Category 4 - suspicious. 4A- low suspicion for malignancy. 4B- moderate suspicion for malignancy. 4C- high suspicion for malignancy. Category 5 - highly suggestive of malignancy. > Interpreting Provider: Damaso Sadelr MD on 12/07/2021 4:34 PM Narrative 12/07/2021 4:34 PM CDT EXAMINATION: DIGITAL MAMMO BILAT SCREENING WITH BILATERAL TOMOSYNTHESIS DATE: 12/07/2021 HISTORY: Screening. COMPARISON: Prior breast imaging dating back to 2011 TECHNIQUE: Bilateral synthetic 2-D (C-view) digital mammogram images and bilateral digital breast tomosynthesis were obtained in the craniocaudal and mediolateral oblique projections. Computer-aided detection (CAD) was utilized. BREAST PARENCHYMAL COMPOSITION: Category B: There are scattered areas of fibroglandular density. FINDINGS: There are no suspicious findings or evidence of malignancy on mammography. There are benign findings noted. There is no significant change from the prior. Gelacio Payne MD MAMMO ORDERABLES * (ABNORMAL) SARS-COV-2 (COVID-19) IN HOUSE (10/04/2019 10:26 AM CDT) COVID-19 PCR Detected( AA) Not detected, Invalid 10/06/2019 1:17 AM CDT [facility] Microbiology SPECIMEN FROM NASOPHARYNGEAL STRUCTURE / Unknown Collection / Unknown 10/04/2019 10:26 AM CDT 10/04/2019 10:[address] [facility] - 10/06/2019 1:17 AM CDT This Real Time RT-PCR assay was developed and its performance characteristics determined by [facility]. This test has been authorized by the Food and Drug administration (FDA)under an Emergency Use Authorization (EUA). This test has been validated in accordance with the FDA's guidance document Policy for Diagnostic Testing in Laboratories Certified to perform High Complexity Testing under CLIA prior to Emergency Use Authorization for Coronavirus Disease-2019 during the Public Health Emergency issued on April 12, 2019. FDA independent review of this validation is pending. This test is only authorized for the duration of time the declaration that circumstances exist justifying the authorization of emergency use of in vitro diagnostic tests for detection of SARS-CoV-2 virus and/or diagnosis of COVID-19 infection under section 564(b)(1) of the Act, 21 U.S.C 360bbb-3 (b)(1), unless the authorization is terminated or revoked sooner. Nkechi Luke BOILER MAKER-CYBER SECURITY ARCHITECT LAB - MICR OBIOLOGY ORDERABLES [facility] [address] [place] [address], [facility] [phone] * US ABDOMEN COMPLETE [id number] (12/21/2014 8:40 AM MD DO [facility]) Anatomical Region Laterality Modality Abdomen Ultrasound 12/21/2014 8:45 AM MD DO [facility] Impressions 12/21/2014 8:53 AM MD DO [facility] Negative complete abdominal sonogram. Narrative 12/21/2014 8:53 AM MD DO [facility] COMPLETE ABDOMINAL SONOGRAM (12/21/2014) CLINICAL HISTORY: Epigastric pain. FINDINGS: Normal appearing liver. No gallstones. Pancreas, spleen, abdominal aorta, IVC and both kidneys are normal. Right kidney measures 11 x 4 x 5 cm. Left kidney measures 10 x 4 x 4 cm. Common duct measures 8 mm. Gallbladder wall thickness is 1.7 mm. Procedure Note Abimael Nazario MD - 12/21/2014 COMPLETE ABDOMINAL SONOGRAM (12/21/2014) CLINICAL HISTORY: Epigastric pain. FINDINGS: Normal appearing liver. No gallstones. Pancreas, spleen, abdominal aorta, IVC and both kidneys are normal. Right kidney measures 11 x 4 x 5 cm. Left kidney measures 10 x 4 x 4 cm. Common duct measures 8 mm. Gallbladder wall thickness is 1.7 mm. IMPRESSION Negative complete abdominal sonogram. Gelacio Payne MD US ORDERABLES * VAS VENOUS DUPLEX LOWER EXT RIGHT (11/28/2012 10:45 AM CDT) Anatomical Region Laterality Modality Intravascular Ul trasound Narrative 12/05/2012 6:16 PM CDT DATE: 11/28/12 INDICATION: PAIN IN THE RIGHT THIGH WITH POSSIBLE DVT PROCEDURE: Venous Duplex study was performed on the right common femoral, superficial femoral, popliteal, peroneal, posterior tibial and greater saphenous veins. The left common femoral vein was imaged for comparison. The flow was spontaneous and phasic. Augmentation test was negative for obstruction. There was no retrograde flow noted and the flow was non-pulsatile. There were no thrombi seen on B-scan images. CONCLUSION: VENOUS DUPLEX STUDY WAS PERFORMED ON THE RIGHT LOWER EXTREMITY AND THE FINDINGS WERE NEGATIVE FOR DEEP VEIN THROMBOSIS. Procedure Note Kathy Payne MD - 12/05/2012 DATE: 11/28/12 INDICATION: PAIN IN THE RIGHT THIGH WITH POSSIBLE DVT PROCEDURE: Venous Duplex study was performed on the right common femoral,superficial femoral, popliteal, peroneal, posterior tibial and greatersaphenous veins. The left common femoral vein was imaged for comparison.The flow was spontaneous and phasic. Augmentation test was negative forobstruction. There was no retrograde flow noted and the flow wasnon-pulsatile. There were no thrombi seen on B-scan images. CONCLUSION: VENOUS DUPLEX STUDY WAS PERFORMED ON THE RIGHT LOWEREXTREMITY AND THE FINDINGS WERE NEGATIVE FOR DEEP VEIN THROMBOSIS. Gelacio Payne MD VASCULAR LAB ORDERAB LES * GROSS + MICRO EXAM (01/27/2007 5:20 PM MD DO [facility]) Result CASE NUMBER [id number] Comment: ORDERING PHYSICIAN Kathy PAYNE SPECIMEN TYPE Stone For Analysis-kidney *CLINICAL HISTORY A 56 year old female presented with a calculus of kidney. SPECIMEN SOURCE Stone for analysis, kidney. GROSS DESCRIPTION The specimen is received in one part. Received fresh, labeled with the patient's identification, and designated stone for analysis, kidney is an irregular piece of brown, firm calculus measuring 0.2 x 0.1 x 0.1 cm. Gross only. Submitted entirely to a reference laboratory for chemical analysis. HC/lw GROSSED BY PRERNA HOLDER M.D. READ BY PRERNA HOLDER M.D. DIAGNOSIS ONE CALCULUS OF KIDNEY RECEIVED, GROSS ONLY. *COMMENT Refer to outside report for chemical analysis. RELEASED BY PRERNA HOLDER MISCELLANEOUS SAMPLES / Unknown 01/27/2007 5:20 PM MD DO [facility] 01/28/2007 8:21 AM MD DO [facility] Historical Provider LAB - PATHOLOGY/C YTOLOGY ORDERABLES Care Teams Supervisor Drying Relationship Specialty [place] [address] [place] [id number] PCP - General Internal Medicine 03/25/24
--- NOTE | 2024-03-28 15:06 | ECG_ITS ---
Test Date: 2024-03-28 15:31:21 Measurements Intervals [place] Rate: 68 P: 48 VA: 136 QRS: -31 QRSD: 94 T: -6 QT: 413 QTc: 440 Interpretive Statements SINUS RHYTHM LEFT AXIS DEVIATION LOW QRS VOLTAGE IN PRECORDIAL LEADS PATTERN CONSISTENT WITH PULMONARY DISEASE VOLTAGE CRITERIA FOR LVH BORDERLINE ST-T WAVE ABNORMALITY- ANT/INF LEADS BASELINE ARTIFACT- I, II, III, AVR, AVL, AVF, V1-V6 BORDERLINE ECG No previous ECG available for comparison Electronically Signed On 03-28-2024 15:33:01 MISSILE CONTROL PILOT by Enrrique Vasques D.O.
[2024-03-28 16:07] LABS: Basophils Percent Auto 0.3 % (0.2-1.2); Eosinophils Absolute Auto 0.2 K/mm3 (0-0.3); Eosinophils Percent Auto 1.9 % (0-4.4); Hematocrit 41.3 % (37.0-47.0); Hemoglobin 13.3 g/dL (12.0-15.0); Lymphocytes Absolute Auto 2.42 K/mm3 (0.9-3.2); Lymphocytes Percent Auto 28.2 % (18.3-44.2); Mean Corpuscular HGB Conc 32.2 g/dl (32-36); Mean Corpuscular Hemoglobin 30.6 pg (26-34); Mean Corpuscular Volume 94.9 fl (80-100); Mean Platelet Volume 10.6 fl (7.4-10.4); Monocytes Absolute Auto 0.6 K/mm3 (0.1-0.6); Monocytes Percent Auto 6.4 % (2.6-8.5); Neutrophils Absolute Auto 5.4 K/mm3 (1.3-6.7); Neutrophils Percent Auto 63.2 % (45.5-73.1); Platelet Count Result 300 k/mm3 (150-375); Red Blood Count 4.35 M/mm3 (4.2-5.4); Red Cell Distribution Width 13.1 % (11.5-14.5); White Blood Count 8.6 K/mm3 (4.5-10.0)
[2024-03-28 16:19] LABS: INR 0.9; Prothrombin Time 12.8 Seconds (11.1-14.7)
[2024-03-28 16:20] LABS: Partial Thromboplastin Time 31.8 Seconds (22.3-36.8)
[2024-03-28 16:26] LABS: Alanine Aminotransferase 25 U/L (6-35); Albumin Level 4.6 g/dL (3.5-5.1); Alkaline Phosphatase 109 U/L (38-126); Anion Gap 11 mmol/L (4-12); Aspartate Amino Transferase 34 U/L (14-36); Bilirubin,Total 0.6 mg/dL (0.2-1.3); Blood Urea Nitrogen 18 mg/dL (7-17); Calcium 9.6 mg/dL (8.4-10.2); Carbon Dioxide 29 mmol/L (22-30); Chloride 101 mmol/L (98-107); Estimated Glomerular Filt Rate > 60; Glucose 101 mg/dL (65-110); Potassium 3.6 mmol/L (3.4-5.0); Sodium 141 mmol/L (137-145)
== END 2024-03-28 13:51 | disposition home or self-care (01) ==
LOC: ANHSURGERY 14:01
PROVIDERS: Visit Provider Urology
DX: N81.11 Cystocele, midline (principal); I10 Essential (primary) hypertension; Z01.818 Encounter for other preprocedural examination
CPT/HCPCS: 36415; 80053; 85025; 85610; 85730; 86850; 86900; 86901; 93005

== ENCOUNTER 2024-04-07 03:23 | Day surgery (SDC) | payer MEDICARE, OTHER, SELFPAY ==
[2024-03-28 14:26] VITALS: BP 161/82; PULSE 68; RESP 16; TEMP 37.3; O2SAT 99; BMI 35.0
--- NOTE | 2024-03-28 14:44 | PC.NURSE ---
Report to the Outpatient Waiting Room, entrance under the green pavilion located off [facility], at time __6:00AM on date ___04/07/24____. Planned Procedure Time: ___7:30AM .? Time changes happen often and if your time is changed the preop area will call you the afternoon before. - You and your visitor will be asked to self-screen and do not enter if you have any COVID symptoms. Please call surgeon if you need to reschedule. - A mask is optional within the hospital at this time. Patients may have clear liquids (water, carbonated beverages, clear teas, apple juice) until 3 hours prior to surgery (4:30AM) with a maximum of 20 ounces. - No food from midnight until time of surgery and no smoking, or chewing tobacco (or any form of nicotine). No chewing gum, candy or mints. Take only the following medications with a SIP of water on the morning of surgery: ___LEVOTHYROXINE, METOPROLOL, SERTRALINE, PRAMIPEXOLE DO NOT STOP ANY OF YOUR OTHER PRESCRIPTION MEDICATIONS PRIOR TO SURGERY EXCEPT THE FOLLOWING Hold all vitamins and supplements for 3 days per anesthesiologist.-LAST DOSE 04/03/24 Medications to discontinue per physician NONE Date to take last dose Please no make-up, nail telugu, hairspray, perfume, deodorant, or body powder the day of surgery.? No jewelry (including any body piercings) or valuables the day of surgery, leave them at home.? Please take a shower or bath the night before, or the morning of, surgery with an antibacterial soap.? Wear comfortable, loose fitting clothing.? - Jewelry must be removed prior to entering the operating room.? Rings and piercings that are not removed may be cut off. - The hospital will not accept responsibility for valuables.? - Please leave all valuables, including medications, at home the day of surgery. If you are going home after surgery, a licensed after school driver must drive you home.? - NO public transportation without another adult if you receive anesthesia. - We recommend that an adult stay with you for 24 hours following discharge. - We also recommend that you do not drive, make important decision, drink alcoholic beverages, or take any drugs that were not prescribed by your health care provider for at least 24 hours after your discharge time. Follow any additional instructions given to you from your surgeon. Telephone instructions given to PATIENT and asked if any additional questions and then verbalized understanding. Patient advised to call surgeon office or pre surgery nurse liaison [phone] if any additional questions.
--- NOTE | 2024-04-04 10:04 | PM.IMHP ---
H&P: HPI History of Present Illness Date/Time: 04/04/24 10:04 Chief Complaint: Prolapse Incontinence Narrative: Vaginal wall prolapse as well as stress incontinence noted on urodynamics Previous instructed Review of Systems Review of Systems: All systems reviewed & are unremarkable except as noted in HPI and below PMFSH Social History Social History Smoking status: Never smoker Living arrangements: with family Additional living arrangements comments: HUSB Spiritual care concerns: No Meds Home Medications and Allergies Home Medications ?Medication ?Instructions ?Recorded ?Confirmed ?Type alendronate 70 mg tablet 70 mg PO WEEKLY 03/28/24 03/28/24 History atorvastatin 40 mg tablet 40 mg PO QPM 03/28/24 03/28/24 History calcium carb-ergocalciferol (vit 2 tablet PO DAILY 03/28/24 03/28/24 History D2) 600 mg calcium-200 unit tablet hydrochlorothiazide 50 mg tablet 50 mg PO QAM 03/28/24 03/28/24 History ipratropium bromide 21 mcg (0.03 2 spray intranasal BID PRN allergy 03/28/24 03/28/24 History %) nasal spray symptoms levothyroxine 50 mcg tablet 50 mcg PO QAM 03/28/24 03/28/24 History metoprolol succinate 100 mg 100 mg PO QAM 03/28/24 03/28/24 History tablet,extended release 24 hr multivitamin (Daily Multi-Vitamin 1 tablet PO DAILY 03/28/24 03/28/24 History tablet) potassium chloride 8 mEq 8 meq PO QAM 03/28/24 03/28/24 History capsule,extended release pramipexole 0.5 mg tablet 0.25 mg PO BID 03/28/24 03/28/24 History sertraline 50 mg tablet 50 mg PO QAM 03/28/24 03/28/24 History Allergies Allergy/AdvReac Type Severity Reaction Status Date / Time amoxicillin Allergy Intermediate RASH Verified 03/28/24 14:16 SURGICAL TAPE AdvReac BLISTERS Uncoded 03/28/24 14:50 Exam Narrative: [place] at +4 Urethral mobility Assessment and Plan Assessment and plan (1) Prolapse of vaginal vault after hysterectomy: Code(s): N99.3 - Prolapse of vaginal vault after hysterectomy Status: Acute (2) CHASTITY (stress urinary incontinence, female): Code(s): N39.3 - Stress incontinence (female) (male) Status: Acute Plan Plan for robotic sacral colpopexy and urethral sling. Risks, benefits, alternatives all discussed. They are documented in my office chart
[2024-04-07] VITALS (10 sets, daily range): BP systolic 110–149; BP diastolic 50–72; PULSE 63–82; RESP 10–18; TEMP 36.8–36.9; O2SAT 92–99
--- OUTSIDE RECORDS SUMMARY | 2024-04-07 03:28 | XMS_ITS | Patient Health Summary ---
Author Organization [facility] Address [address] [place] [address] Care Team Providers Care Commercial Teller Name Role Phone Sha Watson MD Primary Care Provider Note from [facility],non-owned Affiliates and Associated Physician Practices is amultiple site organization consisting of ambulatory clinics and hospital sitesin [place], [place], [place] and [place]. This disclosure is being madepursuant to the Care Everywhere program and may not contain all information available regarding this patient. Last updated 17.[facility] Allergies * Amoxicillin(Rash) -Medium Criticality Medications * [...] Sex Assigned at Female 03/31/2021 8:40 PM RESEARCH QUALITY ASSURANCE ANALYST Gender Identity Female 03/31/2021 8:40 PM RESEARCH QUALITY ASSURANCE ANALYST Sexual Orientation Straight 03/31/2021 8: 40 PM RESEARCH QUALITY ASSURANCE ANALYST Last Filed Vital Signs Vital Sign Reading [...] Bilat Screening W Pb (03/25/2024 1:14 PM RESEARCH QUALITY ASSURANCE ANALYST) Only the most recent of2 resultswithin the time period is included. Anatomical Region Laterality Modality Breast Bilateral Mammography 03/25/2024 2:1 2 PM RESEARCH QUALITY ASSURANCE ANALYST Narrative 03/25/2024 2:14 PM RESEARCH QUALITY ASSURANCE ANALYST FULL FIELD DIGITAL BILATERAL SCREENING MAMMOGRAMS WITH [...] * EKG 12-LEAD (07/17/2023 12:42 PM CDT) [facility] Signature Ventricular Rate 68 BPM [facility] MUSE Atrial Rate 68 BPM [facility] MUSE P-R Interval 154 ms [facility] QRS Duration ms 76 ms [facility] Q-T Interval ms 414 ms [facility] MUSE QTC Calculation (Bezet) 440 ms [facility] MUSE Calculated P [place] 48 degrees [facility] MUSE Calculated R [place] -9 degrees [facility] MUSE Calculated T [place] 5 degrees [facility] MUSE Interpretation EKG NORMAL SINUS RHYTHM NORMAL ECG WHEN COMPARED WITH ECG OF 22-NOV-1999 08:55, NO SIGNIFICANT CHANGE WAS FOUND Confirmed by ROBBY MAGAÑA MD ([id number]), news video editor MAURI PÉREZ ([id number]) on 07/18/2023 2:46:43 PM [facility] MUSE 07/17/2023 12:4 2 PM CDT 07/18/2023 2:46 PM CDT Gelacio Payne MD ECG ORDERABLES [facility] MUSE * CBC WITH DIFFERENTIAL (07/02/2023 8:38 AM CDT) Only the most recent of4 resultswithin the time period is included. Pathologist [facility] WBC 9.4 4.0 - 10.7 x10E9/L 07/02/2023 11:00 AM CDT [facility] RBC Count 4.46 3.90 - 5.20 x10E12/L 07/02/2023 11:00 AM CDT [facility] Hemoglobin 13.6 11.9 - 15.8 g/dL 07/02/2023 11:00 AM CDT [facility] Hematocrit 42.3 34.8 - 46.1 % 07/02/2023 11:00 AM CDT [facility] MCV 94.8 80.0 - 98.0 fL 07/02/2023 11:00 AM CDT [facility] MCH 30.5 26.7 - 33.6 pg 07/02/2023 11:00 AM CDT [facility] MCHC 32.2 31.7 - 36.3 g/dL 07/02/2023 11:00 AM CDT [facility] RDW-CV 13.1 11.3 - 14.8 % 07/02/2023 11:00 AM CDT [facility] Platelet Count 295 150 - 420 x10E9/L 07/02/2023 11:00 AM CDT [facility] MPV 10.9 7.8 - 11.4 fL 07/02/2023 11:00 AM CDT [facility] Neutrophil % 55.4 41.0 - 74.0 % 07/02/2023 11:00 AM CDT [facility] Lymphocyte % 34.0 17.0 - 47.0 % 07/02/2023 11:00 AM CDT [facility] Monocyte % 7.7 3.0 - 11.0 % 07/02/2023 11:00 AM CDT [facility] Eosinophil % 2.0 0.0 - 7.0 % 07/02/2023 11:00 AM T [facility] Basophil % 0.7 0.0 - 1.6 % 07/02/2023 11:00 AM CDT [facility] Immature Granulocytes % 0.2 0.0 - 1.0 % 07/02/2023 11:00 AM CDT [facility] Neutrophil Absolute 5.21 1.60 - 7.50 x10E9/L 07/02/2023 11:00 AM CDT [facility] Lymphocyte Absolute 3.21 1.00 - 4.40 x10E9/L 07/02/2023 11:00 AM CDT [facility] Monocyte Absolute 0.73 0.15 - 1.00 x10E9/L 07/02/2023 11:00 AM CDT [facility] Eosinophil Absolute 0.19 0.00 - 0.60 x10E9/L 07/02/2023 11:00 AM T [facility] Basophil Absolute 0.07 0.00 - 0.13 x10E9/L 07/02/2023 11:00 AM T [facility] Blood BLOOD SPECIMEN / Unknown Venipuncture / Unknown 07/02/2023 8:38 AM CDT 07/02/2023 8:38 AM CDT Gelacio Payne MD LAB - HEMATOLOGY ORD ERABLES [facility] [address] * (ABNORMAL) COMPREHENSIVE METABOLIC PANEL (07/02/2023 8:38 AM CDT) Only the most recent of4 resultswithin the time period is included. [facility] Signature Glucose 110 70 - 125 mg/dL 07/02/2023 11:12 AM [facility] Sodium 141 136 - 145 mmol/L 07/02/2023 11:12 AM [facility] Potassium 3.3(L) 3.4 - 5.1 mmol/L 07/02/2023 11:12 AM [facility] Chloride 106 98 - 107 mmol/L 07/02/2023 11:12 AM [facility] CO2 26 22 - 29 mmol/L 07/02/2023 11:12 AM [facility] Calcium 9.51 8.4 - 10.2 mg/dL 07/02/2023 11:12 AM [facility] Anion Gap 9 6 - 16 mmol/L 07/02/2023 11:12 AM [facility] BUN 20.5(H) 9.8 - 20.1 mg/dL 07/02/2023 11:12 AM [facility] Creatinine 0.95 0.57 - 1.11 mg/dL 07/02/2023 11:12 AM [facility] Alkaline Phosphatase 86 40 - 150 U/L 07/02/2023 11:12 AM [facility] ALT 19 <=55 U/L 07/02/2023 11:12 AM [facility] AST 25 5 - 34 U/L 07/02/2023 11:12 AM [facility] Protein Total 7.2 6.4 - 8.3 gm/dL 07/02/2023 11:12 AM [facility] Albumin 4.1 3.4 - 4.8 gm/dL 07/02/2023 11:12 AM [facility] Globulin Total 3.1 2.6 - 4.0 gm/dL 07/02/2023 11:12 AM [facility] Albumin/Globulin Ratio 1.3 0.9 - 1.6 07/02/2023 11:12 AM [facility] Bilirubin Total 0.6 0.2 - 1.2 mg/dL 07/02/2023 11:12 AM [facility] eGFR 64(L) >90 mL/min/1.7 3m2 07/02/2023 11:12 AM [facility] Comment:The GFR result was c alculated using the updated CKD-EPI Creatinine Equation (2020). Blood BLOOD SPECIMEN / Unknown Venipuncture / Unknown 07/02/2023 8:38 AM CDT 07/02/2023 8:38 AM CDT Gelacio Payne MD LAB - CHEMISTRY KALLIE PEÑA Performing Organization Address [facility] Co de Phone Number [facility] [address] * TSH (07/02/2023 8:38 AM CDT) Only the most recent of4 resultswithin the time period is included. TSH 2.5096 0.35 - 4.94 uIU/mL 07/02/2023 11:32 AM CDT [facility] Blood BLOOD SPECIMEN / Unknown Venipuncture / Unknown 07/02/2023 8:38 AM CDT 07/02/2023 8:38 AM CDT Gelacio Payne MD LAB - CHEMISTRY KALLIE PEÑA Performing Organization Address [facility] de Phone Number [facility] [address] [place] [address] * (ABNORMAL) LIPID PROFILE (07/02/2023 8:38 AM CDT) Only the most recent of4 resultswithin the time period is included. Cholesterol 171 <200 mg/dL 07/02/2023 11:12 AM CDT [facility] Triglycerides 248(H) <150 mg/dL 07/02/2023 11:12 AM CDT [facility] HDL Cholesterol 34(L) >40 mg/dL 11:12 AM CDT [facility] Chol HDL Ratio 5.0 1.0 - 6.0 07/02/2023 11:12 AM CDT [facility] LDL Calculated 87 65 - 130 mg/dL 07/02/2023 11:12 AM CDT [facility] VLDL Calculated 50(H) <=30 mg/dL 11:12 AM CDT [facility] Blood BLOOD SPECIMEN / Unknown Venipuncture / Unknown 07/02/2023 8:38 AM CDT 07/02/2023 8:38 AM CDT [facility] - 07/02/2023 11:12 AM CDT Lipid [...] Payne MD LAB - CHEMISTRY KALLIE PEÑA [facility] Organization Address City/State/ZIP Co de Phone Number [facility] [address] [place] [address], [facility] * XR HUMERUS LEFT 2VW OR MORE [...] O RDERABLES * DEXA BONE DENSITY STUDY [id number] (08/30/2022 2:59 PM CDT) Anatomical Region Laterality [...] * MRI KNEE W WO CONTRAST RIGHT [id number] (05/31/2022 3:13 PM CDT) Anatomical Region Laterality [...] DATE/TIME OF EXAM: 05/31/2022 3:14 PM, LOCATION [facility] INDICATION: S89.91XA: Unspecified injury of right lower [...] CONTRAST, DATE/TIME OF EXAM: :14 PM, LOCATION [facility] INDICATION: S89.91XA: Unspecified injury of right lower [...] suggestive of malignancy. > Interpreting Provider: Damaso Sadler MD on 12/07/2021 4:34 PM Narrative 12/07/2021 [...] Not detected, Invalid 10/06/2019 1:17 AM CDT [facility] Microbiology SPECIMEN FROM NASOPHARYNGEAL STRUCTURE / Unknown Collection / Unknown 10/04/2019 10:26 AM CDT 10/04/2019 10:26 AM CDT Narrative [facility] - 10/06/2019 1:17 AM CDT This Real Time RT-PCR assay was developed and its performance characteristics determined by [facility]. This test has been authorized [...] is terminated or revoked sooner. Nkechi Luke MEDICAL AFFAIRS DIRECTOR-MOTTLER MACHINE FEEDER LAB - MICR OBIOLOGY ORDERABLES [facility] [address] [place] [address], [facility] [phone] * US ABDOMEN COMPLETE [id number] (12/21/2014 8:40 AM RESEARCH QUALITY ASSURANCE ANALYST) Anatomical Region Laterality Modality Abdomen Ultrasound 12/21/2014 8:45 AM RESEARCH QUALITY ASSURANCE ANALYST Impressions 12/21/2014 8:53 AM RESEARCH QUALITY ASSURANCE ANALYST Negative complete abdominal sonogram. Narrative 12/21/2014 8:53 AM RESEARCH QUALITY ASSURANCE ANALYST COMPLETE ABDOMINAL SONOGRAM (12/21/2014) CLINICAL HISTORY: Epigastric [...] GROSS + MICRO EXAM (01/27/2007 5:20 PM RESEARCH QUALITY ASSURANCE ANALYST) Result CASE NUMBER [id number] Comment: ORDERING [...] MISCELLANEOUS SAMPLES / Unknown 01/27/2007 5:20 PM RESEARCH QUALITY ASSURANCE ANALYST 01/28/2007 8:21 AM RESEARCH QUALITY ASSURANCE ANALYST Historical Provider LAB - PATHOLOGY/C YTOLOGY ORDERABLES Care Teams Commercial Teller Relationship Specialty Start Date End Date Sha Watson MD [address] [address] PCP - General Internal Medicine 03/25/24
--- OUTSIDE RECORDS SUMMARY | 2024-04-07 03:28 | XMS_ITS | Referral Summary ---
Author Organization [facility] Address [address] [place] [address] Care Team Providers Care Education General Manager Name Role Phone Sha Watson MD Primary Care Provider Source Comments [facility],non-[facility] Affiliates and Associated Physician Practices is amultiple site organization consisting of ambulatory clinics and hospital sitesin [place], [place], [place] and [place]. This disclosure is being madepursuant to the Care Everywhere program and may not contain all information available regarding this patient. Last updated 17.[facility] Encounters Date Type Department Care Team Description 03/25/2024 12:59 PM CULTURAL ANTHROPOLOGY PROFESSOR - 03/25/2024 11:59 PM [facility] Hospital Encounter [facility] [address] [place] [address] Gelacio Payne MD Schutzenhofer, James L, MD [...] Sex Assigned at Female 03/31/2021 8:40 PM CULTURAL ANTHROPOLOGY PROFESSOR Gender Identity Female 03/31/2021 8:40 PM CULTURAL ANTHROPOLOGY PROFESSOR Sexual Orientation Straight 03/31/2021 8: 40 PM CULTURAL ANTHROPOLOGY PROFESSOR Last Filed Vital Signs Vital Sign Reading [...] SCREENING W KAYE Routine 03/25/2024 1:14 PM CULTURAL ANTHROPOLOGY PROFESSOR Visit for screening mammogram COMPREHENSIVE METABOLIC PANEL Routine 07/02/2023 8:38 AM CDT Hypothyroidism, adult DEXA BONE DENSITY AXIAL SKELETON Routine 08/30/2022 2:59 PM CDT Wellness examination Hypothyroidism, adult Essential hypertension, benign Age related osteoporosis, unspecified pathological fracture presence from Last 3 Months or Most Recently Relevant to Health Maintenance Results * Mammo Bilat Screening W Kaye (03/25/2024 1:14 PM CULTURAL ANTHROPOLOGY PROFESSOR) Anatomical Region Laterality Modality Breast Bilateral Mammography 03/25/2024 2:12 PM CULTURAL ANTHROPOLOGY PROFESSOR Narrative 03/25/2024 2:14 PM CULTURAL ANTHROPOLOGY PROFESSOR FULL FIELD DIGITAL BILATERAL SCREENING MAMMOGRAMS WITH [...] (ABNORMAL) COMPREHENSIVE METABOLIC PANEL (07/02/2023 8:38 AM [facility]) Glucose 110 70 - 125 mg/dL 07/02/2023 11:12 AM [facility] Sodium 141 136 - 145 mmol/L 07/02/2023 11:12 AM [facility] Potassium 3.3(L) 3.4 - 5.1 mmol/L 07/02/2023 11:12 AM [facility] Chloride 106 98 - 107 mmol/L 07/02/2023 11:12 AM [facility] CO2 26 22 - 29 mmol/L 07/02/2023 11:12 AM [facility] Calcium 9.51 8.4 - 10.2 mg/dL 07/02/2023 11:12 AM [facility] Anion Gap 9 6 - 16 mmol/L 07/02/2023 11:12 AM [facility] BUN 20.5(H) 9.8 - 20.1 mg/dL 07/02/2023 11:12 AM [facility] Creatinine 0.95 0.57 - 1.11 mg/dL 07/02/2023 11:12 AM [facility] Alkaline Phosphatase 86 40 - 150 U/L 07/02/2023 11:12 AM [facility] ALT 19 <=55 U/L 07/02/2023 11:12 AM [facility] AST 25 5 - 34 U/L 07/02/2023 11:12 AM [facility] Protein Total 7.2 6.4 - 8.3 gm/dL 07/02/2023 11:12 AM [facility] Albumin 4.1 3.4 - 4.8 gm/dL 07/02/2023 11:12 AM CDT [facility] Globulin Total 3.1 2.6 - 4.0 gm/dL 07/02/2023 11:12 AM CDT [facility] Albumin/Globulin Ratio 1.3 0.9 - 1.6 07/02/2023 11:12 AM CDT [facility] Bilirubin Total 0.6 0.2 - 1.2 mg/dL 07/02/2023 11:12 AM CDT [facility] eGFR 64(L) >90 mL/min/1.7 3m2 07/02/2023 11:12 AM CDT [facility] Comment:The GFR result was c alculated using the updated CKD-EPI Creatinine Equation (2020). Blood BLOOD SPECIMEN / Unknown Venipuncture / Unknown 07/02/2023 8:38 AM CDT 07/02/2023 8:38 AM CDT Gelacio Payne MD LAB - CHEMISTRY [facility] Organization Address City/State/[facility] Co de Phone Number [facility] [address] * DEXA BONE DENSITY STUDY [id number] (08/30/2022 2:59 PM CDT) Anatomical Region Laterality [...] Recently Relevant to Health Maintenance Care Teams Education General Manager Relationship Specialty Start Date End Date Sha Watson MD [address] [address] PCP - General Internal Medicine 03/25/24
--- OUTSIDE RECORDS SUMMARY | 2024-04-07 03:28 | XMS_ITS | Clinical Summary ---
Author Organization [facility] [employer] Address [address] [place] [address] Care Team Providers Care Financial Foundations Representative Name Role Phone Sha Watson MD Primary Care Provider Source Comments [facility],non-owned Affiliates and Associated Physician Practices is amultiple site organization consisting of ambulatory clinics and hospital sitesin [place], [place], [place] and [place]. This disclosure is being madepursuant to the Care Everywhere program and may not contain all information available regarding this patient. Last updated 17.[facility] [employer] Allergies Active Allergy Reactions Criticality Noted Date [...] Department Care Team Description 03/25/2024 12:59 PM STATOR TESTER - 03/25/2024 11:59 PM [facility] [place] [address] Gelacio Payne MD Schutzenhofer, James L, MD [...] Sex Assigned at Female 03/31/2021 8:40 PM STATOR TESTER Gender Identity Female 03/31/2021 8:40 PM STATOR TESTER Sexual Orientation Straight 03/31/2021 8: 40 PM STATOR TESTER Last Filed Vital Signs Vital Sign Reading [...] SCREENING W KAYE Routine 03/25/2024 1:14 PM STATOR TESTER Visit for screening mammogram COMPREHENSIVE METABOLIC PANEL Routine 07/02/2023 8:38 AM CDT Hypothyroidism, adult DEXA BONE DENSITY AXIAL SKELETON Routine 08/30/2022 2:59 PM CDT Wellness examination Hypothyroidism, adult Essential hypertension, benign Age related osteoporosis, unspecified pathological fracture presence from Last 3 Months or Most Recently Relevant to Health Maintenance Results * Mammo Bilat Screening W Kaye (03/25/2024 1:14 PM STATOR TESTER) Anatomical Region Laterality Modality Breast Bilateral Mammography 03/25/2024 2:12 PM STATOR TESTER Narrative 03/25/2024 2:14 PM STATOR TESTER FULL FIELD DIGITAL BILATERAL SCREENING MAMMOGRAMS WITH [...] METABOLIC PANEL (07/02/2023 8:38 AM T) Pathologist [facility] Glucose 110 70 - 125 mg/dL 07/02/2023 11:12 AM [facility] Sodium 141 136 - 145 mmol/L 07/02/2023 11:12 AM [facility] Potassium 3.3(L) 3.4 - 5.1 mmol/L 07/02/2023 11:12 AM [facility] Chloride 106 98 - 107 mmol/L 07/02/2023 11:12 AM [facility] CO2 26 22 - 29 mmol/L 07/02/2023 11:12 AM [facility] Calcium 9.51 8.4 - 10.2 mg/dL 07/02/2023 11:12 AM [facility] Anion Gap 9 6 - 16 mmol/L 07/02/2023 11:12 AM [facility] BUN 20.5(H) 9.8 - 20.1 mg/dL 07/02/2023 11:12 AM [facility] Creatinine 0.95 0.57 - 1.11 mg/dL 07/02/2023 11:12 AM [facility] Alkaline Phosphatase 86 40 - 150 U/L 07/02/2023 11:12 AM [facility] ALT 19 <=55 U/L 07/02/2023 11:12 AM [facility] AST 25 5 - 34 U/L 07/02/2023 11:12 AM [facility] Protein Total 7.2 6.4 - 8.3 gm/dL 07/02/2023 11:12 AM [facility] Albumin 4.1 3.4 - 4.8 gm/dL 07/02/2023 11:12 AM [facility] Globulin Total 3.1 2.6 - 4.0 gm/dL 07/02/2023 11:12 AM CDT [facility] Albumin/Globulin Ratio 1.3 0.9 - 1.6 07/02/2023 11:12 AM CDT [facility] Bilirubin Total 0.6 0.2 - 1.2 mg/dL 07/02/2023 11:12 AM CDT [facility] eGFR 64(L) >90 mL/min/1.7 3m2 07/02/2023 11:12 AM CDT [facility] Comment:The GFR result was c alculated using the updated CKD-EPI Creatinine Equation (2020). Blood BLOOD SPECIMEN / Unknown Venipuncture / Unknown 07/02/2023 8:38 AM CDT 07/02/2023 8:38 AM CDT Gelacio Payne MD LAB - CHEMISTRY KALLIE PEÑA [facility] Organization Address City/State/[facility] Co de Phone Number [facility] [address] * DEXA BONE DENSITY STUDY [id number] (08/30/2022 2:59 PM CDT) Anatomical Region Laterality [...] Recently Relevant to Health Maintenance Care Teams Financial Foundations Representative Relationship Specialty Start Date End Date Sha Watson MD [address] [address] PCP - General Internal Medicine 03/25/24
--- NOTE | 2024-04-07 04:59 | WPDHPUPDATE1 ---
History and Physical Update Update Date/Time: 04/07/24 04:59 History and Physical has been reviewed, including an updated exam of the patient. There are NO changes in the patient's condition. Risks, benefits, and alternatives have been discussed and questions answered. Patient agrees to proceed with procedure.
[2024-04-07] MEDS: LACTATED RINGERS 1,000 ML 30 ML IV CONT ×2 (06:20→09:53)
--- NOTE | 2024-04-07 07:04 | WPDANESEPPF ---
Anes - Initial Pre Proc Eval Procedure: Operation Date: 04/07/24 07:30 Proposed Procedures p Robotic Sacrocolpopexy, Urethral Sling - Danilo Gastelum MD Date/Time: 04/07/24 07:04 Surgeon: Danilo Gastelum MD Pre Op Diagnosis: prolpase, midline cystocele, incont Patient Data Age: 73 Gender: F Height: 1.6 m Weight: 89.2 kg Last Vital Signs Temp 98.5 F 04/07/24 06:00 Pulse 75 04/07/24 06:00 Resp 18 04/07/24 06:00 BP 149/72 H 04/07/24 06:00 Pulse Ox 99 04/07/24 06:00 O2 Del Method Room Air 04/07/24 06:00 Allergies Allergy/AdvReac Type Severity Reaction Status Date / Time amoxicillin Allergy Intermediate RASH Verified 04/07/24 06:07 SURGICAL TAPE AdvReac BLISTERS Uncoded 04/07/24 06:07 Home Medications ?Medication ?Instructions ?Recorded ?Confirmed ?Type alendronate 70 mg tablet 70 mg PO WEEKLY 03/28/24 04/07/24 History atorvastatin 40 mg tablet 40 mg PO QPM 03/28/24 04/07/24 History calcium carb-ergocalciferol (vit 2 tablet PO DAILY 03/28/24 04/07/24 History D2) 600 mg calcium-200 unit tablet hydrochlorothiazide 50 mg tablet 50 mg PO QAM 03/28/24 04/07/24 History ipratropium bromide 21 mcg (0.03 2 spray intranasal BID PRN allergy 03/28/24 03/28/24 History %) nasal spray symptoms levothyroxine 50 mcg tablet 50 mcg PO QAM 03/28/24 04/07/24 History metoprolol succinate 100 mg 100 mg PO QAM 03/28/24 04/07/24 History tablet,extended release 24 hr multivitamin (Daily Multi-Vitamin 1 tablet PO DAILY 03/28/24 04/07/24 History tablet) potassium chloride 8 mEq 8 meq PO QAM 03/28/24 04/07/24 History capsule,extended release pramipexole 0.5 mg tablet 0.25 mg PO BID 03/28/24 04/07/24 History sertraline 50 mg tablet 50 mg PO QAM 03/28/24 04/07/24 History Patient hx anesthesia problems: none Family hx anesthesia problems: none Results Review: All pre-operative results and documents have been reviewed as part of the pre-operative evaluation. [facility] Social History Social History Smoking status: Never smoker Living arrangements: with family Additional living arrangements comments: HUSB Spiritual care concerns: No Anes - Eval Final PreProcedure Day of Procedure 04/07/24 07:04 Patient weight: obese Lungs: normal air movement Airway: Mallampati scale and special considerations (Upper removable partial. ) Neurological: alert and oriented Last oral intake: >/= 8 hours ASA classification: II Emergent: no Anesthetic plan: proceed Anesthesia type and monitoring: general ETT and standard monitoring Results Review: All pre-operative results and documents have been reviewed as part of the pre-operative evaluation. HTN, hyperlipidemia, hypothyroidism. Pt walks 1 fos, no cp or sob. Informed Consent: The patient's anesthetic plan and its attendant risks and benefits were discussed with the patient/family/POA. Questions were solicited and answers provided to the satisfaction of the patient/family/POA.
[2024-04-07] MEDS: ceFAZolin 2 GM/D5W 50 ML 2 GM/50 ML BAG IVPB (07:24)
[2024-04-07] MEDS: BUPIVACAINE/EPINEPHRINE 0.5% 50 ML VIAL 30 ML INFILTRATE (07:56)
--- NOTE | 2024-04-07 10:10 | P.OP_ITS ---
Procedure Note - Detailed Date of Procedure 04/07/24 Pre-op Diagnosis Vaginal vault prolapse, stress urinary incontinence Post-op Diagnosis Same Procedure Performed Robotic assisted laparoscopic sacral colpopexy Urethral sling Cystoscopy Surgeon Danilo Gastelum MD Anesthesia General Indications This is a woman with post hysterectomy vaginal vault prolapse as well as stress urinary incontinence. She desires surgical correction. She understands risks of bleeding, infection, diskitis, damage to surrounding organs, damage to the bowel or urinary tract, recurrence of prolapse, dyspareunia, vaginal mesh exposure, urinary tract mesh exposure, obstructive voiding requiring secondary procedure, hip and leg pain, persistent incontinence and prolapse, and other perioperative intraoperative and postoperative complications. She is to proceed Findings See below Description of Procedure She was correctly identified. Informed consent obtained. She is brought to the operating room. She was given general anesthesia. She was placed in the lithotomy position. She was given appropriate perioperative antibiotics. She was prepped and draped in a sterile fashion. A time-out performed. I anesthetized the skin 3 fingerbreadths cephalad to the umbilicus. I incised the skin. I located the fascia. I grasped the fascia with Adama clamps. I incised the fascia sharply and a Malhotra type technique. I placed Vicryl sutures for later fascial closure. I placed a midline trocar. Under direct vision placed 2 additional trocars in the right upper quadrant and 2 additional trocars in the left upper quadrant. She was placed in steep Trendelenburg. The robot was docked. I sat at the console. With the Sizer in the vagina and created a plane on the anterior and posterior vaginal wall for several cm taking great care not to injure the vagina, bladder, or rectum. Of note there was scarring on the anterior vaginal wall from previous hysterectomy. I took great care not to injure the vagina or the bladder. I introduced the mesh into the vagina. I sewed the anterior leaflet of mesh on the anterior vaginal wall and posterior leaf of the mesh on the posterior vaginal wall with several sutures of 2 0 Casselberry- Alexandro taking great care not to go through and through. I then opened up the peritoneum over the sacral promontory. I carried this incision into the cul-de-sac. I freed up the edges for later retroperitonealization of the mesh. I located the anterior longitudinal ligament of the sacrum. I cleaned off any fatty tissues. I then tensioned my mesh appropriately. I did a vaginal exam to ensure prolapse reduction without undue tension. I then sewed the proximal leaflet of mesh onto the ligament with several sutures of 2 0 Casselberry-Alexandro. I then used a 2 0 Monocryl to meticulously retroperitonealized all mesh. I allowed the colon to go back into its normal anatomic location. There is no sign of impingement. He had an was then exited. Fascial sutures were closed. The wounds were all irrigated and closed with 4 O Monocryl and skin glue. She was then repositioned and prepped for urethral sling. I marked out the inner thigh incisions. I anesthetized the skin and made those incisions. I then anesthetized the anterior vaginal wall over the mid urethra. I made a 1 cm incision. I dissected out laterally taking great care not to injure the urethra vaginal wall. I passed the helical trocars. Trocar passage was made somewhat more difficult due to her body habitus and her atrophic vaginal tissues. I did this 1st on the left than on the right from the thigh incision towards the vaginal incision. Sling was connected to the trocars and brought out through the thigh incision. I tensioned the sling appropriately. I cut and removed the plastic sleeves. I assured there was no mesh exposure in the midline or the sulcus. I then performed cystoscopy. The bladder showed no evidence of surgical artifact or tumor. Both ureters were seen to excrete clear yellow urine. I cut the excess sling material. I closed incisions with glue. She was awakened and transferred to the PACU in stable condition. Implants Sacral colpopexy mesh Urethral sling Estimated Blood Loss 20 Packing No Pathology None sent Complications No immediate complications Condition Stable Disposition PACU
[2024-04-07] MEDS: ONDANSETRON INJ 4 MG/2 ML VIAL IV PUSH (11:11)
== END 2024-04-07 12:25 | disposition home or self-care (01) ==
PROVIDERS: Visit Provider Urology
PROC: (CPT 57425; principal; 2024-04-07 07:30)
DX: N99.3 Prolapse of vaginal vault after hysterectomy (principal); N39.3 Stress incontinence (female) (male); N32.81 Overactive bladder; I10 Essential (primary) hypertension; E78.5 Hyperlipidemia, unspecified; E03.9 Hypothyroidism, unspecified; E66.9 Obesity, unspecified; Z68.34 Body mass index [BMI] 34.0-34.9, adult; Z79.83 Long term (current) use of bisphosphonates
CPT/HCPCS: 57425; 57288; S2900; C1771; C1781; J0690; J1100; J1171; J2003; J2250; J2405; J2704; J3010; J7030; J7120